=== PATIENT | female | born 1965 | race Caucasian/White ===

== ENCOUNTER 2020-03-05 17:38 | Emergency (ER) | payer OTHER ==
[~2020-03-05] VITALS: Ht 154.9 cm; Wt 48.5 kg
[~2020-03-05 17:38] MED LIST: CIPROFLOXACIN500 M1 PO; NORCO 5-325 TA1 EACH PO
[2020-03-05 18:09] LABS: URINE BILIRUBIN NEGATIVE (Negative); URINE BLOOD NEGATIVE (Negative); URINE CLARITY CLEAR; URINE COLOR YELLOW; URINE GLUCOSE-RANDOM NEGATIVE (Negative); URINE KETONES NEGATIVE (Negative); URINE LEUKOCYTES-REFLEX NEGATIVE (Negative); URINE NITRITE-REFLEX NEGATIVE (Negative); URINE PROTEIN NEGATIVE (Negative); URINE SPECIFIC GRAVITY >= 1.030 (1.005-1.030); URINE UROBILINOGEN 0.2 E.U./dl (0.2-1.0)
[2020-03-05 18:20] LABS: ABSOLUTE EOSINOPHILS 0.1 thou/uL (0.0-0.7); ABSOLUTE LYMPHOCYTES 1.8 thou/uL (0.8-5.3); ABSOLUTE MONOCYTES 0.4 thou/uL (0.0-1.2); ABSOLUTE NEUTROPHILS 2.8 thou/uL (1.6-8.1); BASOPHILS 0.6 %; EOSINOPHILS 1.2 %; HEMATOCRIT 33.3 % (37.0-47.0); HEMOGLOBIN 11.5 gm/dL (12.0-15.0); LYMPHOCYTES 35.1 %; MCHC 34.6 g/dL (28.0-37.0); MCV 89.5 fL (80.0-100.0); MONOCYTES 7.5 %; MPV 9.6 fl. (7.2-11.1); NUCLEATED RBCS 0 /100WBC; PLATELET COUNT* 162 thou/uL (150-400); POLYS 55.6 %; RBC 3.72 mil/uL (4.20-5.00); RDW-CV 12.8 % (10.5-14.5); WBC 5.1 thou/uL (4.0-11.0)
[2020-03-05 18:31] LABS: CREATININE 0.9 mg/dL (0.6-1.3); POTASSIUM 3.3 mmol/L (3.5-5.1)
[2020-03-05 18:44] LABS: ALBUMIN 3.4 g/dL (3.4-5.0); TOTAL BILIRUBIN 0.5 mg/dL (<0.1-1.0); TOTAL PROTEIN 6.7 g/dL (6.4-8.2)
[2020-03-05] MEDS ORDERED: CYCLOBENZAPRINE5 MG PO (20:55)
[2020-03-05 21:10] VITALS: BP 123/68
--- NOTE | 2020-03-08 09:23 | EKG ---
[place] [address] ELECTROCARDIOGRAM REPORT Name: SANJIV PATHAK Room: [facility]#: [id number] Admission: 03/05/20 Attend Phys: Discharge: 03/05/20 Date of : 67 Date of Service: 03/05/201813 Report #: [id number] THIS REPORT FOR: //name// [facility] ED Test Date: 2020-03-05 Test Time: 18:14:02 Pat Name: SANJIV PATHAK Department: Room: Gender: F Roof Foreman: TDS : 1965 Requested By: Krista Celeste Order Number: [id number] MD: Rodrigo Mcgill Measurements Intervals [place] Rate: 63 P: 54 [place]: 152 QRS: 46 QRSD: 98 T: 48 QT: 422 QTc: 433 Interpretive Statements Sinus rhythm Compared to ECG 11/24/2014 22:57:23 Sinus bradycardia no longer present Electronically Signed On 03-08-2020 9:23:11 CDT by Rodrigo Mcgill [email or web address] <ELECTRONICALLY SIGNED> By: Rodrigo Mcgill MD, [facility] 03/08/20922 13 13 Rodrigo Mcgill MD, [facility] /EPI
== END 2020-03-05 21:15 | disposition home or self-care (01) ==
LOC: M.ERS 17:38
PROVIDERS: Nurse Practitioner Family
DX: R10.84 Generalized abdominal pain (principal); Z90.49 Acquired absence of other specified parts of digestive tract; Z90.710 Acquired absence of both cervix and uterus; Z88.1 Allergy status to other antibiotic agents; Z88.6 Allergy status to analgesic agent

== ENCOUNTER 2020-07-24 16:33 | Emergency (ER) | payer OTHER ==
[~2020-07-24] VITALS: Ht 154.9 cm; Wt 54.4 kg
[~2020-07-24 16:33] MED LIST changes: +CYCLOBENZAPRINE5 MG PO
[2020-07-24 17:36] VITALS: BP 126/72
== END 2020-07-24 17:37 | disposition home or self-care (01) ==
LOC: M.ERS 16:33
DX: R51.9 Headache, unspecified (principal); Z20.828 Contact with and (suspected) exposure to other viral communicable diseases; Z88.6 Allergy status to analgesic agent; Z88.5 Allergy status to narcotic agent; Z90.710 Acquired absence of both cervix and uterus; Z90.49 Acquired absence of other specified parts of digestive tract

== ENCOUNTER → 2021-07-21 | Outpatient (CLI) | payer OTHER | LOC: M.CT 07:33 | PROVIDERS: ATTEND Nurse Practitioner Family | DX: Z13.6 Encounter for screening for cardiovascular disorders (principal); I25.10 Atherosclerotic heart disease of native coronary artery without angina pectoris ==